=== PATIENT | female | born 1960 | race Caucasian/White ===

== ENCOUNTER 2016-11-19 17:59 | Emergency (ER) | payer OTHER ==
[2016-11-19 18:32] VITALS: BP 146/86
--- NOTE | 2016-11-19 18:53 | UC ---
Throat Pain/Nasal Marcus HPI - HPI Summary HPI Summary: 55 year old female patient complaining of maxillary sinus pressure x 3-4 days. - History of Current Complaint Chief Complaint: UCRespiratory Stated Complaint: SORE THROAT Time Seen by Provider: 11/19/16 18:38 Hx Obtained From: Patient Hx Last Menstrual Period: hysterectomy ?: No Onset/Duration: Gradual Onset Severity: Mild Cough: None Associated Signs & Symptoms: Positive: Sinus Discomfort, Nasal Discharge Related History: Seasonal Allergies - Epiglottits Risk Factors Epiglottis Risk Factors: Negative - Allergies/Home Medications Allergies/Adverse Reactions: Allergies Allergy/AdvReac Type Severity Reaction Status Date / Time No Known Allergies Allergy Verified 11/19/16 18:33 Home Medications: Home Medications Tuyyganraxtrx-Oudxmsoxkjpvc-Pl [Tylenol Sinus Congestion 5-325-200 mg] 2 tab PO PRN 11/19/16 [History] PMH/Surg Hx/FS Hx/Imm Hx Previously Healthy: Yes Endocrine History Of: Reports: Diabetes, Dyslipidemia Denies: Thyroid Disease Cardiovascular History Of: Reports: Hypertension Denies: Cardiac Disorders, Pacemaker/ICD, Myocardial Infarction, Congestive Heart Failure, Atrial Fibrillation, Deep Vein Thrombosis, Bleeding Disorders Respiratory History Of: Reports: Asthma - She states that she is no longer asthmatic since she stopped smoking. Denies: COPD, Bronchitis, Pneumonia, Pulmonary Embolism GI/ History Of: Denies: Gastroesophageal Reflux, Ulcer, Gastrointestinal Bleed, Gall Bladder Disease, Kidney Stones, Diverticulitis, Renal Disease, Urosepsis Neurological History Of: Denies: TIA, CVA, Dementia, Seizures, Migraine Psychological History Of: Reports: Anxiety, Depression Denies: Bipolar Disorder, Schizophrenia, Post Traumatic Stress Disorder Cancer History Of: Denies: Lung Cancer, Colorectal Cancer, Breast Cancer, Prostate Cancer, Cervical Cancer Other History Of: Negative For: HIV, Hepatitis B, Hepatitis C - Surgical History Surgical History: Yes Surgery Procedure, Year, and Place: carpel tunnel bilat; rolly; csection x2; hysterectomy 1999 - Family History Known Family History: Positive: None Negative: Hypertension, Diabetes - Social History Occupation: Employed Full-time Lives: With Family Alcohol Use: None Substance Use Type: None Smoking Status (MU): Former Smoker When Did the Patient Quit Smoking/Using Tobacco: 2008 - Immunization History Most Recent Influenza Vaccination: 2014 Review of Systems Skin: Negative Eyes: Negative ENT: Nasal Discharge Cardiovascular: Negative Gastrointestinal: Negative Genitourinary: Negative Motor: Negative Neurovascular: Negative Musculoskeletal: Negative Neurological: Negative Psychological: Negative All Other Systems Reviewed And Are Negative: Yes Physical Exam Triage Information Reviewed: Yes Appearance: Well-Appearing, No Pain Distress Vital Signs: Initial Vital Signs Temp 97.9 F 11/19/16 18:30 Pulse 107 11/19/16 18:30 Resp 18 11/19/16 18:30 BP 146/86 11/19/16 18:30 Pulse Ox 97 11/19/16 18:30 Vital Signs Reviewed: Yes Eye Exam: Normal Eyes: Positive: Conjunctiva Clear ENT Exam: Other ENT: Positive: Nasal congestion, Nasal drainage, TMs normal. Negative: Tonsillar swelling, Tonsillar exudate Dental Exam: Normal Neck exam: Other Neck: Positive: Supple, Nontender, No Lymphadenopathy, Other: - Goiter Respiratory Exam: Normal Respiratory: Positive: Chest non-tender, Lungs clear, Normal breath sounds, No respiratory distress Cardiovascular Exam: Normal Cardiovascular: Positive: RRR, No Murmur, Pulses Normal Abdominal Exam: Normal Abdomen Description: Positive: Nontender Bowel Sounds: Positive: Present Musculoskeletal Exam: Normal Musculoskeletal: Positive: Strength Intact Neurological Exam: Normal Neurological: Positive: Alert Psychological Exam: Normal Skin Exam: Normal Throat Pain/Nasal Course/Dx - Course Course Of Treatment: Discussed the standard of care for sinusitis, expained the likely viral nature of her symptoms, but pt was adamant that she needs abx and will call her PCP if we don't prescribe them here. - Differential Dx/Diagnosis Provider Diagnoses: Acute Sinusitis Discharge - Discharge Plan Condition: Stable Disposition: HOME Prescriptions: Azithromycin TAB* [Zithromax TAB*] 250 mg PO SEE INSTRUCTIONS #6 tab Patient Education Materials: Sinusitis (ED) Referrals: Kate Hickey MD [Primary Care Provider] - Additional Instructions: Most scientific studies do not support routine or early use of antibiotics for sinusitis because most (95%) cases are viral. Even in the case of bacterial sinusitis, it is not clear that antibiotics help the course of illness. If you truly have recurrent or recalcitrant cases of sinusitis, I recommend you discuss consulting an ear, nose, throat specialist with your primary care provider.
== END 2016-11-19 19:45 | disposition home or self-care (01) ==
LOC: UCEAST 17:59
DX: J01.90 Acute sinusitis, unspecified (principal); Z87.891 Personal history of nicotine dependence
CPT/HCPCS: 99212; G0463

== ENCOUNTER 2017-04-06 05:58 | Inpatient (IN) | payer OTHER ==
--- NOTE | 2017-03-21 15:06 | HP ---
PREOPERATIVE HISTORY AND PHYSICAL: DATE OF ADMISSION: 04/06/17 This patient is scheduled for AA admission by Dr. Hill, on Thursday, April 06, 2017. DATE OF PREOPERATIVE HISTORY AND PHYSICAL: 03/21/17 ATTENDING SURGEON: Dr. Kishor Hill (dictated by Luana Leyva NP). CHIEF COMPLAINT: Morbid obesity. HISTORY OF PRESENT ILLNESS: The patient is a 56-year-old female who stands at 65 inches and weighs 277 pounds for a body mass index of 46. She has obesity related comorbidities of insulin-dependent diabetes, which has been difficult to control, hypertension, dyslipidemia, severe back pain and depression and anxiety. She is seeking bariatric surgery as a more permanent solution to her obesity and comorbidities. She has completed the necessary preoperative diagnostic testing and evaluations and has been deemed an appropriate candidate by Dr. Hill to proceed with laparoscopic Krzysztof-en-Y gastric bypass. She will start her preoperative diet today. Dr. Hill described the nature of the surgical procedure, the relevant risks, benefits and alternatives, the expected results of the surgery. Today, I reviewed the typical hospitalization, as well as postoperative care and recovery including compliance with the stages of the postoperative bariatric diet, vitamin and mineral supplementation, exercise and followup appointments. The patient has had a chance to ask questions and stated that she understands the information and is satisfied with the answers given to her questions. She will sign surgical consent on the day of surgery. PAST MEDICAL HISTORY: Significant for morbid obesity, insulin-dependent diabetes, hypertension, dyslipidemia, chronic back pain related to arthritis and disc condition, anxiety and depression. PAST SURGICAL HISTORY: Open cholecystectomy, section x2, total abdominal hysterectomy and bilateral salpingo-oophorectomy for dysfunctional uterine bleeding and bilateral carpal tunnel release. OB HISTORY: 2, para 2. She is up to date with breast exam, mammogram, pelvic and does not report any problems. MEDICATIONS: 1. Ezetimibe 10 mg p.o. daily. 2. Metformin ER 500 mg two tablets p.o. b.i.d. I have instructed her to hold metformin for 24 hours preoperatively. 3. Aripiprazole 5 mg p.o. daily at bedtime. 4. Montelukast 10 mg p.o. daily. 5. Meloxicam 15 mg daily as needed for back pain. 6. Pantoprazole 40 mg p.o. daily. 7. Duloxetine 60 mg p.o. b.i.d. 8. Bupropion 300 mg p.o. daily. 9. Ramipril 10 mg p.o. daily. 10. Farxiga 5 mg p.o. daily. 11. Atorvastatin 80 mg p.o. daily at bedtime. 12. Victoza 18 mg per 3 mL inject 1.8 mg daily. 13. Tizanidine 2 mg one to two tablets p.o. t.i.d. p.r.n. back spasms. 14. Alprazolam 0.25 mg t.i.d. p.r.n. anxiety. 15. Sliding scale insulin. 16. Humulin R U-500, which she takes according to fingersticks and I have included a scale with her preoperative orders. 17. Amoxicillin clavulanate 875/125 mg tablet one tablet by mouth twice a day for a current sinus infection and she will complete this before surgery. ALLERGIES: No known drug allergies. No food or latex allergies. 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 Older sister with rheumatoid arthritis normal weight and two brothers who are normal weight. She states that there is a strong family history of depression. No known anesthesia complications or bleeding tendencies in the family. SOCIAL HISTORY: She is ; her of a myocardial infarction about 8 years ago; her 27-year-old son lives with her and her parents live around the corner. 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 She stopped smoking in 2012 after smoking 1 to 2 packs a day for 30 years. She drinks alcohol socially and denies the use of other substances. REVIEW OF SYSTEMS: She denies any cardiac conditions or complaints; she denies any chest pain, palpitations, syncopal episodes; she denies any known history of myocardial infarction, arrhythmia or CHF; she does have intermittent edema of the lower extremities. She is dyspneic on exertion and unable to go up two flights of stairs without stopping. She underwent stress testing on 11/25/16, which was normal with an ejection fraction of 56%. EKG in Dr. Ash's office 11/11/16 showed normal sinus rhythm with poor R-wave progression and inferior Q waves considering old inferior wall NC and was grossly unchanged from prior EKG January 2011. We will repeat the EKG with her preadmission testing. She is a previous smoker and stopped smoking in 2012 with the help of Chantix. She underwent a sleep study a few years ago at [facility] and was told that she does not have sleep apnea but does have restless legs syndrome. She had an upper endoscopy in 2010, which revealed a small hiatal hernia and mild gastritis, negative CLOtest. She is status post open cholecystectomy. She denies any kidney conditions or complaints and states that she has occasional urinary leakage. She has a history of a deep vein thrombosis, right lower extremity and was on a short course of anticoagulation two years ago; there has been no recurrence of thromboembolic events. She is not currently taking aspirin. She states that she has chronic low back pain, joint pain, osteoarthritis, and osteopenia and a disc that is very painful. She states that it is difficult to get up and down if she is sitting on the floor. She has difficulty maneuvering in general. She denies any neurologic conditions or complaints. She has a history of anxiety and depression and is not currently in therapy, but was evaluated by and was found to be an acceptable candidate for bariatric surgery. She is an insulin-dependent diabetic and is followed by Dr. Nolan, an label machine operator in [place], [place]. Her diabetes has been difficult to control. She is on multiple medications and sliding scale insulin; she checks her fingersticks three times a day and typically in the morning it is 200. She has never had any thyroid conditions diagnosed. She denies any previous anesthesia complications or bleeding tendencies. She did receive a blood transfusion in 1985 after a . She suffers from frequent skin fold rashes and uses antifungals as needed. PHYSICAL EXAMINATION GENERAL SURVEY: The patient is a 56-year-old morbidly obese female, in no acute distress. VITAL SIGNS: Height 65 inches, weight 277 pounds, body mass index 46, blood pressure 130/76, pulse 90 and regular, respiratory rate 18, temperature 97.2 tympanic. SKIN: Warm, dry, intact. HEENT: Benign. NECK: Supple. No carotid bruits. No obvious thyromegaly. LUNGS: Breath sounds bilaterally clear and equal. HEART: Regular rate and rhythm. No murmurs or rubs appreciated. BREAST: Exam done within the past year not repeated. ABDOMEN: Obese, soft, well-healed surgical scars, status post open cholecystectomy and total abdominal hysterectomy. No obvious masses, organomegaly or incisional or ventral hernias but exam is limited by body habitus. No skin folds, rashes. EXTREMITIES: Warm. No skin ulcerations. No pitting edema. PELVIC AND RECTAL: Deferred. NEUROLOGIC: Alert and oriented x3, steady gait. IMPRESSION: Morbid obesity. PLAN: AA admission to Dr. Hill's service on Thursday, April 06, 2017, for laparoscopic Krzysztof-en-Y gastric bypass. ESHA LEYVA NP CC: Dr. Hill; Dr. Kate Huston; Dr. Kishor Ash * [id number]/[facility] #: [id number] MTDFreya
[2017-04-06] MEDS ORDERED: Famotidine IV* 10 MG/ML 2 ML (20 mg) IV ONE (06:00)
[2017-04-06] MEDS ORDERED: Metoclopramide IV* 5 MG/ML 2 ML VIAL IV SLOW PU ONE (06:00)
[2017-04-06] MEDS ORDERED: Scopolamine 1.5 mg* PATCH TRANSDERM ONE (06:00)
[2017-04-06] MEDS ORDERED: Famotidine IV* 10 MG/ML 2 ML (20 mg) ONE ×2 (06:06→18:01)
[2017-04-06] MEDS ORDERED: Metoclopramide IV* 5 MG/ML 2 ML VIAL ONE (06:06)
[2017-04-06] MEDS ORDERED: Heparin VIAL(*) 5000 UNITS/ML VIAL (FIVE THOUSAND) ONE (06:07)
[2017-04-06] MEDS ORDERED: Scopolamine 1.5 mg* PATCH ONE (06:07)
[2017-04-06] MEDS ORDERED: ceFAZolin 1 GM in Dextrose (*) 1 GM/50 ML BAG IVPB ONE (06:07)
[2017-04-06] MEDS ORDERED: ceFAZolin 2 GM PREMIX(*) 2 GM/50 ML BAG IVPB ONE (06:07)
[2017-04-06] MEDS ORDERED: Buffered Lidocaine 1% SYRIN* 5 ML/SYR SYRINGE ONE (06:07)
[2017-04-06] MEDS ORDERED: Bupivacaine 0.25% EPI 200,000* 30 ML SDV ONE ×2 (07:06→08:54)
[2017-04-06] MEDS ORDERED: Methylene Blue 1% (ANTIDOTE)* 10 MG/ML 1 ML SDV VIAL IVPB ONE ×2 (07:06→07:14)
[2017-04-06] MEDS ORDERED: Insulin LISPRO* 1 UNITS UNIT SUBCUT ONE ×4 (07:34→12:30)
[2017-04-06] MEDS ORDERED: fentaNYL* 50 MCG/ML 2 ML VIAL (100 MCG VIAL) ONE ×5 (07:45→11:45)
[2017-04-06] MEDS ORDERED: Midazolam* 1 MG/ML 5 ML VIAL (5 MG) ONE (07:45)
[2017-04-06] MEDS ORDERED: Lidocaine 2% PF * 5 ML VIAL ONE (07:56)
[2017-04-06] MEDS ORDERED: Propofol* 10 MG/ML 20 ML BTL IV PUSH ONE (07:56)
[2017-04-06] MEDS ORDERED: Rocuronium* 10 MG/ML VIAL ONE ×2 (07:57→09:33)
[2017-04-06] MEDS ORDERED: Acetaminophen IV 1GM/100ML * 100 ML IVPB ONE (08:42)
[2017-04-06] MEDS ORDERED: PROCHLORPERAZINE INJ 5 MG/ML 2 ML VIAL IV PRN (08:42)
[2017-04-06] MEDS ORDERED: Morphine INJ* 2 MG/ML 1 ML SYRINGE IV PRN (08:42)
[2017-04-06] MEDS ORDERED: Ondansetron INJ* 2 MG/ML VIAL ONE (09:51)
[2017-04-06] MEDS ORDERED: Labetalol IV* 5 MG/ML 20 ML VIAL ONE (10:06)
[2017-04-06] MEDS ORDERED: Insulin REGULAR(*) 1 UNITS UNIT ONE (10:19)
[2017-04-06] MEDS ORDERED: Phenylephrine IV* 40 MCG/ML 10 ML SYRINGE ONE (10:26)
[2017-04-06] MEDS ORDERED: Glycopyrrolate IV* 0.2 MG/ML 1 ML VIAL ONE (11:02)
[2017-04-06] MEDS ORDERED: Neostigmine Methylsulfate* 2 MG/2 ML SYRINGE ONE (11:02)
[2017-04-06] MEDS ORDERED: Ondansetron INJ* 2 MG/ML VIAL IV PRN (11:15)
[2017-04-06] MEDS ORDERED: Acetaminophen ADULT LIQ* 650 MG/20.3 ML UDC PO PRN (11:15)
[2017-04-06] MEDS ORDERED: diPHENhydraMINE IV* 50 MG/ML 1 ml VIAL (BENADRYL) SLOW PUSH PRN (11:15)
[2017-04-06] MEDS ORDERED: Acetaminophen IV 1GM/100ML * 100 ML ONE (11:15)
--- NOTE | 2017-04-06 11:15 | SURGPN ---
Brief Operative Note - Surgery Procedures: Pre-OP Diagnoses: Clinically severe obesity Post-op Diagnosis: Clinically severe obesity, cirrhosis Procedure: Laparoscopic COLTON, Krzysztof an Y gastric bypass, a trucut needle biopsy of liver Surgeon: Liz Asst: Mecenas Anethesia: GETA Sumit EBL: <100cc IVF: 2100cc LR Specimen: Liver core bx Drains: none
[2017-04-06] MEDS: fentaNYL* 50 MCG/ML 2 ML VIAL (100 MCG VIAL) IV PRN ×2 (11:47→12:51)
[2017-04-06] MEDS ORDERED: Dextrose 50% Syringe 50 ML* 25 GM/50 ML SYRINGE IV PUSH PRN ×2 (11:48→15:34)
[2017-04-06] MEDS ORDERED: PROCHLORPERAZINE INJ 5 MG/ML 2 ML VIAL ONE (12:05)
[2017-04-06] MEDS ORDERED: Heparin VIAL(*) 5000 UNITS/ML VIAL (FIVE THOUSAND) SUBCUT SCH (14:00)
[2017-04-06] MEDS: Ketorolac INJ* 15 MG/ML 1 ML VIAL IV PRN ×2 (14:46→21:40)
[2017-04-06] MEDS: Insulin LISPRO* 1 UNITS UNIT SUBCUT SCH ×2 (18:05→22:13)
[2017-04-06] MEDS: HYDROmorphone* 1 MG/ML 1 ML SYR IV PRN ×2 (18:40→21:40)
--- NOTE | 2017-04-06 22:19 | OP ---
DATE OF OPERATION: 04/06/17 - ROOM #351 DATE OF : 56 SURGEON: Dr. Hill. HOTEL MAINTENANCE TECHNICIAN: Dr. Feliz. ANESTHESIOLOGIST: Shyann Arana MD ANESTHESIA: General PRE-OP DIAGNOSES: 1. Clinically severe obesity. 2. Insulin-dependent diabetes. 3. Hypertension. 4. Hypercholesterolemia. 5. Chronic pain. POST-OP DIAGNOSES: 1. Clinically severe obesity. 2. Insulin-dependent diabetes. 3. Hypertension. 4. Hypercholesterolemia. 5. Chronic pain. 6. Cirrhotic liver. OPERATIVE PROCEDURES: 1. Laparoscopic lysis of adhesions. 2. Laparoscopic Krzysztof-en-Y gastric bypass. 3. Cullen-Cut core needle biopsy of the liver. BLOOD LOSS: Less than 100 cc. CRYSTALLOID FLUID GIVEN: 2100 cc of LR. SPECIMENS: Core biopsy of the liver. DRAINS: None. COUNTS: Lap pad count and instrument count correct at the end of the procedure. DESCRIPTION OF PROCEDURE: Ms. Thomas was identified in the preoperative area , assessed by the anesthesiologist. I did lorrie her abdomen, discussed the case again with her going over the risks, benefits, and alternatives as well as possible complications. The patient agreed, signed consent. She was taken back to the operating room and placed on the operating room table in a supine position. Preoperative antibiotics were given. Sequential devices were placed on bilateral lower extremities. General anesthesia was induced. A Turk catheter was inserted and the patient's abdomen was prepped and draped in the standard surgical fashion. A time-out was performed. Folds of the umbilicus were elevated anteriorly and a Veress needle was inserted through the abdominal cavity which was then allowed to insufflate to a pressure of 15 mmHg. The patient tolerated the insufflation well. Preston between the xiphoid and the umbilicus just left of midline, a 12-mm trocar was inserted. Laparoscope was inserted through this and there was no evidence of injury from the trocar insertion or from the Veress needle, which was then removed. Significant adhesions were identified in the lower abdomen along the lower midline as well as extending to the right and left pelvic areas. Looking up at the liver, we saw liver with significant cirrhotic changes. A 12-mm port was then placed in the right upper quadrant. This allowed us to lift the liver up to expose the gastroesophageal fat pad. We did identify this liver was mobile and therefore we would continue with the procedure. A 5-mm trocar was then placed in the right upper quadrant as well, as well as a 12-mm in the left upper quadrant and a 5-mm in the left upper quadrant. Attention was turned towards the lower abdomen. With LigaSure, lysis of adhesions was carried out taking omentum off the anterior abdominal wall right down to the pelvis. We did encounter small bowel and this was sharply lysed as well from the pelvic region to lift this up. Once we had lift the omentum up cephalad, we identified the ligament of Treitz. We counted approximately 40 cm off from the ligament of Treitz and transected the bowel at this site. An enterotomy was made on what would become the biliopancreatic limb. Next, we counted approximately 80 cm from the small bowel. This would become the Krzysztof limb. This was run on antegrade and this was placed in apposition to the biliopancreatic limb. An enterotomy was made along this and the jejunojejunostomy was created with a 60 mm steele CHARLOTTE stapling device. The common defect was closed with 2-0 silk sutures in a [id number]-[id number] fashion and the mesenteric defect was similarly closed. Hemostasis was excellent and attention was then turned towards the stomach. The patient was placed in a steep reverse Trendelenburg. A Joelle retractor was inserted through the subxiphoid incision and the liver was retracted anteriorly to the right. This was done delicately because of the changes. We did not cause injury. We were able to identify well the gastroesophageal fat pad, which was grasped and retracted towards the right lower quadrant. Blunt dissection was carried out at this site to expose the left crura. There was no evidence of a hiatal hernia. Next, a retrogastric tunnel was made at approximately the 3rd crossing vessel and a 45 mm steele CHARLOTTE stapling device was fired across the stomach. The stomach pouch was completed with additional 16 mm steele CHARLOTTE stapling device. Next, the Krzysztof limb was brought in apposition to the stomach pouch. An Larry OG tube was then inserted and stay sutures were placed from the Krzysztof limb to the stapled edge of the gastric pouch. Gastrotomy was made over the Larry tube and an enterotomy was made on the small bowel and these were anastomosed with a gastrojejunostomy with a 30-mm steele CHARLOTTE stapling device placing it approximately 2.5 cm of the staple. A common defect was closed with interrupted 2-0 silk sutures in a figure-of- eight fashion and the anastomosis was tested by clamping the proximal Krzysztof limb and inserting the Larry tube through the anastomosis proving that it was patent. A methylene blue dye test was then performed and we saw no evidence of blue extravasation. The dye that had been intraluminal was suctioned out by the anesthesiologist and the Larry tube removed. Attention was then turned towards the liver. A Cullen-Cut needle biopsy was utilized along the anterior edge of the right medial segment. Hemostasis was achieved with electrocautery. The Cullen-Cut specimen was passed off. Review of the abdomen showed no bleeding. Anastomosis was intact without concern. The abdomen was allowed to collapse, trocar was removed under direct vision as was the Joelle retractor and all 6 skin incisions were reapproximated with skin mildred followed by sterile dressing and a Band-Aid over the Cullen-Cut incision site. CC: Dr. Kate Huston; Dr. Kishor Ash; [facility] * [id number]/[facility] #: [id number] [facility]
[2017-04-07] MEDS: Insulin LISPRO* 1 UNITS UNIT SUBCUT SCH ×5 (02:31→21:48)
[2017-04-07] MEDS: HYDROmorphone* 1 MG/ML 1 ML SYR IV PRN (02:31)
[2017-04-07] MEDS ORDERED: Famotidine IV* 10 MG/ML 2 ML (20 mg) ONE ×2 (05:50→18:08)
[2017-04-07] MEDS: Ketorolac INJ* 15 MG/ML 1 ML VIAL IV PRN ×3 (05:58→20:02)
[2017-04-07] MEDS: Heparin VIAL(*) 5000 UNITS/ML VIAL (FIVE THOUSAND) SUBCUT SCH ×3 (06:00→21:49)
[2017-04-07 06:24] LABS: Hematocrit 41 % (35-47); Hemoglobin 13.3 g/dl (12.0-16.0); Mean Corpuscular HGB Conc 33 g/dl (31-36); Mean Corpuscular Hemoglobin 26 pg (27-31); Mean Corpuscular Volume 81 fL (80-97); Mean Platelet Volume 9 um3 (7.4-10.4); Red Blood Count 5.03 10^6/ul (4.0-5.4); Red Cell Distribution Width 17 % (10.5-15); White Blood Count 9.1 10^3/ul (3.5-10.8)
--- NOTE | 2017-04-07 09:37 | PN ---
Progress Note - Progress Note SOAP: Subjective: Pt seen and examined. No complaints. pos flatus, thirsty Objective: af vss HR tachy at times UO good lungs clear b/l abdo: soft/obese/incisional tenderness dressing intact no calf tenderness UGI: wnl labs noted Assessment: POD1 rygb Plan: d/c menendez OOB heparin sq labs in am chnage IVF
[2017-04-07] MEDS ORDERED: ALPRAZolam TAB* 0.25 MG PO PRN (09:39)
--- NOTE | 2017-04-07 09:47 | RAD ---
CPT II Codes: 6045F. Indication: Status post gastric bypass. Approximately 0.6 minutes of fluoroscopy time was used. Water soluble contrast was given to the patient. Oral and frontal phase of deglutition are unremarkable. No evidence of extraluminal contrast is noted. No obstruction is noted. IMPRESSION: No evidence of extraluminal contrast is noted.
[2017-04-07] MEDS: D5W 1/2 NS KCl 20 Meq 1000 ML* 1,000 ML IV SCH ×2 (10:03→16:56)
[2017-04-07] MEDS: HYDROcodone/ACET. 7.5/325 LIQ* 15 ML UDC PO PRN ×3 (10:28→23:43)
[2017-04-07] MEDS ORDERED: ARIPiprazole TAB* 2 MG PO SCH (21:00)
[2017-04-07] MEDS: DULoxetine DR CAP* 60 MG CAP.DR PO SCH (21:45)
[2017-04-08] MEDS: D5W 1/2 NS KCl 20 Meq 1000 ML* 1,000 ML IV SCH ×2 (01:14→09:40)
[2017-04-08] MEDS: Heparin VIAL(*) 5000 UNITS/ML VIAL (FIVE THOUSAND) SUBCUT SCH (06:10)
[2017-04-08 06:26] LABS: Hematocrit 37 % (35-47)
[2017-04-08 06:27] LABS: Comments Flag Yes
[2017-04-08] MEDS: HYDROcodone/ACET. 7.5/325 LIQ* 15 ML UDC PO PRN (06:34)
[2017-04-08] MEDS: Insulin LISPRO* 1 UNITS UNIT SUBCUT SCH (08:32)
[2017-04-08 08:50] VITALS: BP 109/60
[2017-04-08] MEDS ORDERED: BuPROPion XL* 300 MG TAB.XL PO SCH (09:00)
[2017-04-08] MEDS: DULoxetine DR CAP* 60 MG CAP.DR PO SCH (09:39)
[2017-04-08] MEDS ORDERED: ARIPiprazole TAB* 5 MG PO SCH (21:00)
--- NOTE | 2017-04-09 01:50 | DS ---
CC: Kate Huston MD; Kishor Ash DO; [facility]; Olga Brennan DISCHARGE SUMMARY: DATE OF ADMISSION: 04/06/17 DATE OF DISCHARGE: 04/08/17 HISTORY AND HOSPITAL COURSE: Ms. Thomas is a 56-year-old female worked up as an outpatient with d iagnoses of clinically severe obesity, insulin-dependent diabetes, hypertension, hypercholesterolemi a who presented on same day of surgery and underwent a laparoscopic gastric bypass procedure. Andrey daniels see operative report for full details. Briefly, the patient was noted to have significant liver c hanges and underwent a liver biopsy at the time of the surgery. Pathology was consistent with micro and macrovesicular steatosis, moderate grade. In the postoperative period, the patient went to the PACU and then on to the short- stay surgical un it where she recovered well. The patient's Turk catheter was removed on postoperative day 1. She underwent an upper GI study wh ich was within normal limits. She was started on a bariatric clear diet, which she tolerated. By p ostoperative day 2, the patient had normal vital signs and was making good urine. We did follow her H and H, which showed some mild drop during her hospitalization to a hematocrit of 37 compared to a preoperative hematocrit of 48. PHYSICAL EXAMINATION: On day of discharge, the patient was seen, she was afebrile. Vital signs were stable. Blood pressure 109/60. Alert and oriented x3, in no apparent distress. No complaints of abdominal pain. Lungs: Clear to auscultation bilaterally. Abdomen: Soft, nondistended, nontender . Dressing removed. Skin mildred in place with mild ecchymosis over 2 of the lower incisions. Ext remities: Within normal limits with no calf tenderness. PLAN: The patient is for planned discharge today. Follow up in my office next . Appointme nt is made in the morning. At that time, we will remove mildred. The patient was given a handout f or the postoperative planned liquid diet. She will stay with this and move on to [facility] at the appr opriate time. She understands this. Regarding her medications, she will continue her alprazolam, A bilify, Cymbalta, Wellbutrin, Farxiga, regular insulin, Singulair, pantoprazole and her metformin. We will hold her ezetimibe, ramipril, Victoza, and tizanidine. She is on antibiotics for a sinus inf ection and these will be stopped. The patient understands to contact our office as we discussed concerns for any abdominal pain or fev ers, palpitations, worsening course that she should contact us immediately. The patient understands this. Her questions were answered and she was discharged today. [id number]/[facility] #: [id number]
[2017-04-09] MEDS ORDERED: Scopolomine PATCH Remove* 1 NOTE MISC PATCH OFF ONE (06:00)
== END 2017-04-08 12:38 | disposition home or self-care (01) | DRG 621 ==
LOC: AA 05:58 → SSU 13:52
PROVIDERS: ADMIT Surgery; ATTEND Surgery
PROC: 0DNS4ZZ (ICD-10-PCS; 2017-04-06)
PROC: 0FB13ZX Excision of Right Lobe Liver, Percutaneous Approach, Diagnostic (ICD-10-PCS; 2017-04-06)
PROC: 0D164ZA Bypass Stomach to Jejunum, Percutaneous Endoscopic Approach (ICD-10-PCS; principal; 2017-04-06 07:45)
DX: E66.01 Morbid (severe) obesity due to excess calories (principal); K74.60 Unspecified cirrhosis of liver; E11.9 Type 2 diabetes mellitus without complications; I10 Essential (primary) hypertension; J32.9 Chronic sinusitis, unspecified; E78.00 Pure hypercholesterolemia, unspecified; K76.0 Fatty (change of) liver, not elsewhere classified; Z68.42 Body mass index [BMI] 45.0-49.9, adult; M54.9 Dorsalgia, unspecified; F32.9 Major depressive disorder, single episode, unspecified; F41.9 Anxiety disorder, unspecified; G89.29 Other chronic pain; M19.90 Unspecified osteoarthritis, unspecified site; Z79.4 Long term (current) use of insulin; Z83.3 Family history of diabetes mellitus; Z82.49 Family history of ischemic heart disease and other diseases of the circulatory system; Z82.61 Family history of arthritis; Z81.8 Family history of other mental and behavioral disorders; Z83.6 Family history of other diseases of the respiratory system; Z87.891 Personal history of nicotine dependence; G25.81 Restless legs syndrome; K44.9 Diaphragmatic hernia without obstruction or gangrene; K29.70 Gastritis, unspecified, without bleeding; Z86.718 Personal history of other venous thrombosis and embolism; N73.6 Female pelvic peritoneal adhesions (postinfective)
CPT/HCPCS: 36415; 74246; 85014; 85018; 85025; 85610; 87641; 88307; 88313; A9270-GY; C1776; J0690; J0780; J1170; J1644; J1885; J2250; J2405; J2704; J3010

== ENCOUNTER 2017-09-21 16:13 | Emergency (ER) | payer OTHER ==
[2017-09-21 16:28] VITALS: BP 93/62
[2017-09-21] MEDS ORDERED: Tetan/Diph/Pertus SYR(Tdap)* 0.5 ML SYR(BOOSTRIX) use SYR IM ONE (16:41)
--- NOTE | 2017-09-21 16:48 | ED ---
Upper Extremity Pain - HPI Summary HPI Summary: 56 y/o female here c/o right elbow and right wrist pain after she had an accidental fall today at 3pm in the parking lot. She has an abrasion in the right side of the fase. She denies any headache or neck pain. She denies any LOC. She denies any CP, SOB, palpitations. She has no other complaints. She is ambulatory w/o any pain in the LE. - History of Current Complaint Chief Complaint: UCUpperExtremity Stated Complaint: ARM INJURY Time Seen by Provider: 09/21/17 16:30 Hx Last Menstrual Period: hysterectomy - Allergies/Home Medications Allergies/Adverse Reactions: Allergies Allergy/AdvReac Type Severity Reaction Status Date / Time No Known Allergies Allergy Verified 09/21/17 16:29 PMH/Surg Hx/FS Hx/Imm Hx Endocrine/Hematology History: Reports: Hx Diabetes Denies: Hx Thyroid Disease Cardiovascular History: Reports: Hx Hypercholesterolemia, Hx Hypertension Denies: Hx Congestive Heart Failure, Hx Deep Vein Thrombosis, Hx Myocardial Infarction, Hx Pacemaker/ICD Respiratory History: Reports: Hx Asthma - She states that she is no longer asthmatic since she stopped smoking., Hx Chronic Bronchitis, Other Respiratory Problems/Disorders - tobacco disorder Denies: Hx Chronic Obstructive Pulmonary Disease (COPD), Hx Lung Cancer, Hx Pneumonia, Hx Pulmonary Embolism GI History: Reports: Hx Diverticulosis, Hx Gastroesophageal Reflux Disease Denies: Hx Gall Bladder Disease, Hx Gastrointestinal Bleed, Hx Ulcer, Hx Urosepsis History: Reports: Other Problems/Disorders - UTI's Denies: Hx Kidney Stones, Hx Renal Disease Musculoskeletal History: Reports: Hx Arthritis - NECK AND SPINE, HANDS, Hx Back Problems, Other Musculoskeletal History - carpal tunnel Sensory History: Reports: Hx Contacts or Glasses Denies: Hx Hearing Aid Opthamlomology History: Reports: Hx Contacts or Glasses Neurological History: Reports: Hx Headaches Denies: Hx Dementia, Hx Migraine, Hx Seizures, Hx Transient Ischemic Attacks (TIA) Psychiatric History: Reports: Hx Anxiety, Hx Depression Denies: Hx Schizophrenia, Hx Bipolar Disorder - Surgical History Surgery Procedure, Year, and Place: carpel tunnel bilat; rolly; csection x2; hysterectomy 2000 Hx Anesthesia Reactions: No Infectious Disease History: No Infectious Disease History: Denies: Hx Clostridium Difficile, Hx Hepatitis, Hx Human Immunodeficiency Virus (HIV), Hx of Known/Suspected MRSA, Hx Shingles, Hx Tuberculosis, Hx Known/ Suspected VRE, Hx Known/Suspected VRSA, History Other Infectious Disease, Traveled Outside the [place] in Last 30 Days - Family History Known Family History: Positive: None Negative: Hypertension, Diabetes - Social History Alcohol Use: None Substance Use Type: Reports: None Smoking Status (MU): Former Smoker Amount Used/How Often: 1 PPD X 30 YEARS Review of Systems Constitutional: Negative Eyes: Negative ENT: Negative Cardiovascular: Negative Respiratory: Negative Gastrointestinal: Negative Genitourinary: Negative Musculoskeletal: Negative Skin: Other Positive: Other - abrassion Neurological: Negative Psychological: Normal All Other Systems Reviewed And Are Negative: Yes Physical Exam - Summary Physical Exam Summary: VITAL SIGNS: Reviewed. GENERAL: Patient is a well developed and nourished female who is lying comfortable in the stretcher. Patient is not in any acute respiratory distress. HEAD AND FACE: Positive abrassion on the right side of the face. No orbital tenderness. EYES: PERRLA, EOMI x 2, No injected conjunctiva, no nystagmus. EARS: Hearing grossly intact. Ear canals and tympanic membranes are within normal limits. No Hemotympanum. MOUTH: Oropharynx within normal limits. NECK: Supple, trachea is midline, no adenopathy, no JVD, no carotid bruit, no c- spine tenderness, neck with full ROM. CHEST: Symmetric, no tenderness at palpation LUNGS: Clear to auscultation bilaterally. No wheezing or crackles. CVS: Regular rate and rhythm, S1 and S2 present, no murmurs or gallops appreciated. ABDOMEN: Soft, non-tender. No signs of distention. No rebound no guarding, and no masses palpated. Bowel sounds are normal. EXTREMITIES: FROM in all major joints, no edema, no cyanosis or clubbing. Mild tenderness in the right elbow but no signs of deformity or hematoma NEURO: Alert and oriented x 3. No acute neurological deficits. Speech is normal and follows commands. SKIN: Dry and warm Vital Signs On Initial Exam: Initial Vitals Temp Pulse Resp BP Pulse Ox 98.4 F 81 18 93/62 99 09/21/17 16:25 09/21/17 16:25 09/21/17 16:25 09/21/17 16:25 09/21/17 16:25 Diagnostics - Vital Signs Vital Signs Temp Pulse Resp BP Pulse Ox 09/21/17 16:25 98.4 F 81 18 93/62 99 - Laboratory Lab Statement: Any lab studies that have been ordered have been reviewed, and results considered in the medical decision making process. Course/Dx - Course Assessment/Plan: Elbow X ray IMPRESSION: Acute minimally impacted intra- articular fracture of the radial head. Wrist X-ray: No fracture or dislocation. Abrasion were irrigated and bacitracin was applied. Patient given tetanous booster. Patient was placed in a posterior splint. Patient is neurovascular intact pre and post posterior splint. Patient referred to Orthopedics. I discussed all the findings and test results with the patient. Patient was instructed to return to the emergency room immediately if any of the symptoms return or worsens. Plan of care was discussed with the patient and understands and agrees. All questions were answered at patient satisfaction. There were no further complaints or concerns. Lung exam before discharge: CTA B /L. Good air exchange. No wheezing or crackles heard. CVS: S1 and S2 present. No murmurs appreciated. Patient is alert and oriented x 3. Patient is hemodynamically stable. Patient will be discharged home with follow up PCP in the next 2-3 days - Diagnoses Differential Diagnosis/HQI/PQRI: Positive: Contusion, Fracture (Closed), Hematoma, Strain, Sprain Provider Diagnoses: Elbow pain, Skin abrasion Discharge - Discharge Plan Condition: Stable Disposition: HOME Patient Education Materials: Elbow Fracture (ED), Abrasion (ED), Fall Prevention (ED) Referrals: Kate Hickey MD [Primary Care Provider] - Shawnee Pham MD [Medical Doctor] - Additional Instructions: Please take Ibuprofen or Tylenol for pain F/u with Orthopedic doctor in the next 3-4 days
--- NOTE | 2017-09-21 17:09 | RAD ---
INDICATION: RIGHT wrist and elbow pain post fall today. COMPARISON: September 29, 2012 TECHNIQUE: AP, lateral, and oblique views RIGHT wrist. REPORT: Normal articular alignment. No cortical disruption or suspicious trabecular irregularity to suggest fracture. Mild osteoarthritis at the scaphoid trapezium and trapezium first metacarpal articulations without significant change. Mild soft tissue swelling without significant focality. IMPRESSION: Negative for fracture.
--- NOTE | 2017-09-21 17:11 | RAD ---
INDICATION: Pain post fall. COMPARISON: No relevant prior exams available on the [facility] PACS for comparison. TECHNIQUE: AP, lateral, and oblique views RIGHT elbow. REPORT: Grossly nondisplaced intra-articular fracture at the radial head with up to 1 mm impaction. Negative for additional fracture. Associated joint effusion. Normal articular alignment. Enthesophytes at the epicondyles and olecranon process. Soft tissue swelling most prominent over the dorsal ulnar aspect. IMPRESSION: Acute minimally impacted intra-articular fracture of the radial head.
== END 2017-09-21 17:40 | disposition home or self-care (01) ==
LOC: UCEAST 16:13
DX: Z87.891 Personal history of nicotine dependence (principal); S00.81XA Abrasion of other part of head, initial encounter; S52.121A Displaced fracture of head of right radius, initial encounter for closed fracture; W18.30XA Fall on same level, unspecified, initial encounter; Y93.01 Activity, walking, marching and hiking; Y92.481 Parking lot as the place of occurrence of the external cause; Y99.9 Unspecified external cause status
CPT/HCPCS: 90715; 99213; G0463

== ENCOUNTER 2019-03-01 06:51 | Day surgery (SDC) | payer OTHER ==
[~2019-03-01 06:51] MED LIST: Buffered Lidocaine 1% SYRIN* 1 ML/SYRINGE INTRADERM ONE; Lactated Ringers 1000 ML Bag* 1,000 ML IV SCH
[2019-03-01] MEDS ORDERED: Dexamethasone IV* 4 MG/ML 1 ML (4 MG) ONE (07:10)
[2019-03-01] MEDS ORDERED: Heparin VIAL(*) 5000 UNITS/ML VIAL (FIVE THOUSAND) ONE (07:10)
[2019-03-01] MEDS ORDERED: Scopolamine 1.5 mg* PATCH ONE (07:11)
[2019-03-01] MEDS ORDERED: Buffered Lidocaine 1% SYRIN* 1 ML/SYRINGE INTRADERM ONE (07:11)
[2019-03-01] MEDS ORDERED: ceFAZolin 2 GM PREMIX in ORs 2 GM/50 ML BAG IVPB ONE (07:11)
[2019-03-01] MEDS ORDERED: Ondansetron INJ* 2 MG/ML VIAL ONE (07:11)
[2019-03-01] MEDS ORDERED: EPINEPHRINE 1 MG/ML 1 ML VIAL ONE (08:48)
[2019-03-01] MEDS ORDERED: Methylene Blue 0.5 %* 50 MG/10 ML AMP IV ONE (08:48)
[2019-03-01] MEDS ORDERED: Lidocaine 2% PF* 10 ML AMP ONE (08:48)
[2019-03-01] MEDS ORDERED: Bupivacaine 0.25% SDV PF* 10 ML VIAL INJ ONE (08:49)
[2019-03-01] MEDS ORDERED: Sodium Bicarbonate 8.4%* 50 ML SYRINGE ONE ×2 (08:49→08:58)
[2019-03-01] MEDS ORDERED: Lidocaine 2% PF * 5 ML VIAL ONE (08:57)
[2019-03-01] MEDS ORDERED: Propofol* 10 MG/ML 20 ML BTL ONE (08:57)
[2019-03-01] MEDS ORDERED: fentaNYL* 50 MCG/ML 2 ML VIAL (100 MCG VIAL) ONE ×2 (08:58→12:13)
[2019-03-01] MEDS ORDERED: Rocuronium* 10 MG/ML VIAL ONE (08:58)
[2019-03-01] MEDS ORDERED: Albuterol 2.5 MG/3 ML NEB.SOL* (0.083%) INH ONE (08:59)
[2019-03-01] MEDS ORDERED: EPINEPHrine SYR 0.1MG/ML* SYRINGE ONE (09:16)
[2019-03-01] MEDS ORDERED: Naloxone* 0.4 MG/ML 1 ML VIAL IV PRN (09:51)
[2019-03-01] MEDS ORDERED: DiMENhydriNATE IV* 50 MG/ML VIAL IV PUSH PRN (09:51)
[2019-03-01] MEDS ORDERED: Acetaminophen IV 1GM/100ML * 1,000 MG/100 ML VIAL IVPB ONE (09:51)
[2019-03-01] MEDS ORDERED: Neostigmine Methylsulfate* 3 MG/3 ML SYRINGE ONE (11:14)
[2019-03-01] MEDS ORDERED: Glycopyrrolate IV* 0.2 MG/ML 1 ML VIAL ONE (11:14)
[2019-03-01] MEDS: fentaNYL* 50 MCG/ML 2 ML VIAL (100 MCG VIAL) IV PRN ×2 (12:14→12:41)
[2019-03-01] MEDS ORDERED: Ramipril CAP* 2.5 MG PO ONE (12:30)
[2019-03-01 13:23] VITALS: BP 135/74
[2019-03-01] MEDS ORDERED: Acetaminophen TAB* 325 MG ONE (13:37)
--- NOTE | 2019-03-01 21:07 | OP ---
CC: Dr. Merlin Olson; Dr. Kate Huston; Dr. Kishor Hill* OPERATIVE NOTE: DATE OF OPERATION: 03/01/19 - SDS DATE OF : 56 SURGEON: Merlin Olson MD FIRE FIGHTERS DISPATCHER: YOANA Dorsey SECOND SINGLE END SEWER: Loli Peacock. ANESTHESIOLOGIST: Danis Peralta DO ANESTHESIA: General. PRE-OP DIAGNOSIS: Severe skin and subcutaneous redundancy, mons pubis. POST-OP DIAGNOSIS: Severe skin and subcutaneous redundancy, mons pubis. OPERATIVE PROCEDURE: Mons pubis reduction. ESTIMATED BLOOD LOSS: Less than 50 cc. SPECIMENS: Skin and subcutaneous tissue mons pubis, 1000 g. DRAINS: Two 10-mm Riley-Mcgowan. COMPLICATIONS: None. INDICATIONS: The patient is a 58-year-old woman with a long history of a very large, edematous, overhanging mons pubis. She underwent gastric bypass surgery with Dr. Hill on 03/26/17. Since then, she has lost significant weight and the edema in the mons pubis has improved, but she still has an extremely large sagging mons pubis, which hangs down between her legs, interferes with walking and interferes with proper fitting of clothing. Her panties do not fit properly and she has to push her panties to one side and let the mons pubis hang down to the leg opening. Examination of the body contour demonstrates a very large, prominent, fatty, overhanging mons pubis. The mons pubis overhang measures 11 cm. DESCRIPTION OF PROCEDURE: The patient was taken to the operating room and placed in the supine position. Intermittent compression devices were applied to both lower extremities. General anesthesia was induced by Dr. Peralta. Operative sites were prepped with Betadine and draped sterilely. Liposuction was performed on the mons pubis, placing small access incision on either side of the mons pubis and then infiltrating the subcutaneous tissues with a total of 800 cc of 0.05% lidocaine with epinephrine 1:1,000,000 solution using infiltrating cannula. Liposuction of the mons pubis was then performed using 3 and 4 mm cannulae attached to high vacuum suction machine. A total of 425 cc of aspirate was obtained. The planned transverse oriented fusiform elliptical area of excision of vertical excess skin and subcutaneous tissue had been marked preoperatively and the lower incision was made. This was placed approximately 14 cm above the anterior-superior limit of the labial cleft. Dissection was continued down through the subcutaneous tissues using cutting current electrocautery and then undermining the superior skin up to the planned level of the superior excision line. This was elevated and it was confirmed that the remaining mons pubis could be advanced to the planned level, without excessive tension. Next, the superior horizontal incision was made with scalpel and then the excess tissue amputated with subcutaneous dissection with electrocautery. Total amount of tissue excised was 1000 g at the end of the procedure. The lateral portions of the wound were closed on either side in multiple layers using buried subcutaneous and deep dermal sutures of 2-0 and 3-0 Vicryl. There was significant horizontal excess of the mons pubis as well and this was excised through a midline vertically oriented wedge excision, again incising the skin with scalpel and then subcutaneous dissection performed with electrocautery. The vertical wedge excision extended down to just above the anterior-superior extent of the labial cleft. Care was taken to avoid deep subcutaneous dissection in this area. Two large flat Riley-Mcgowan drains were placed and brought out through lateral lower abdominal skin and sutured to the skin with 2-0 Prolene sutures. The remaining wound was closed in multiple layers again using buried subcutaneous and deep dermal sutures of 2-0 and 3-0 Vicryl and then running 3-0 Monocryl on the skin. The long transverse wound was then dressed with a VAC Prevena dressing. Good seal was obtained. The patient tolerated the procedure well. There were no complications. All counts were reported as correct at the end of the procedure. The patient was taken to the recovery area in stable postoperative condition. [id number]/[facility] #: [id number] [facility] HOSPITALFreya
== END 2019-03-01 14:42 | disposition home or self-care (01) ==
LOC: OR 06:51
PROVIDERS: ATTEND Plastic Surgery
DX: L98.7 Excessive and redundant skin and subcutaneous tissue (principal); Z98.84 Bariatric surgery status; E11.9 Type 2 diabetes mellitus without complications; Z79.4 Long term (current) use of insulin; Z87.891 Personal history of nicotine dependence; I10 Essential (primary) hypertension; M19.90 Unspecified osteoarthritis, unspecified site; E78.00 Pure hypercholesterolemia, unspecified
CPT/HCPCS: 88300; A9270-GY; A9272-GY; J0171; J0690; J1100; J1644; J2001; J2405; J2704; J2710; J3010; J3490